=== PATIENT | male | born 1965 | race Caucasian/White ===

== ENCOUNTER 2018-12-29 06:22 | Inpatient (IN) | payer OTHER ==
[2018-12-21 15:36] VITALS: BMI 24.6
[2018-12-29] VITALS (18 sets, daily range): BP systolic 115–134; BP diastolic 70–85; PULSE 58–77; RESP 14–32; Ht 188 cm; Wt 86.0 kg
[~2018-12-29] VITALS: Ht 188 cm; Wt 86.0 kg
--- NOTE | 2018-12-29 05:56 | HPN ---
Date/Time of Note Date/Time of Note DATE: 12/29/18 TIME: 05:55 Interval H&P Admission Note Pt. seen H&P reviewed: No system changes PARAMJIT AMADO MD Dec 29, 2018 05:56
--- NOTE | 2018-12-29 05:59 | OPR ---
Date/Time of Note Date/Time of Note DATE: 12/29/18 TIME: 05:56 Operative Report Procedure Date: Dec 29, 2018 Preoperative Diagnosis Left shoulder primary arthritis Postoperative Diagnosis 1. Left shoulder primary arthritis (glenohumeral) 2. Left shoulder acromioclavicular joint arthritis 3. Left shoulder partial biceps tendon tear 4. Right knee posterior popliteal cyst Operation/Procedure Performed 1. Left open total shoulder replacement 2. Left open distal clavicular excision 3. Left shoulder open biceps tenodesis 4. Right knee aspiration of popliteal cyst with injection of cortisone 5. Left shoulder injection of PRP solution Surgeon see signature line Consulting Property Manager Arie Burrows PA-C Anesthesia Type: general Estimated Blood Loss: 150 - 200 ml's Transfusion none Specimen None Grafts/Implants See op note Complications none Pt Condition Post Procedure: stable Disposition: PACU Procedure Description FRUIT VENDOR SURGEON: Arie Burrows PA-C was asked to be present for this case at my request. Assistance was necessary as a result of the highly technical nature of this operation. When performing an open total shoulder r eplacement, it is critical to have a trained broker assistant who is an expert in handling the extremity and assisting the surgeon in tasks such as suture management and knot-tying techniques as well as implants. This assistance cannot be performed by a relay technician, as it is considered an integral part of the procedure and the broker assistant should be compensated for his time. PROCEDURE IN DETAIL: Following the administration of general anesthesia supplemented with a peripheral nerve block for postoperative pain control, the patient was examined under anesthesia. Examination of the left shoulder revealed severe stiffness and crepitus. The right knee was addressed first. The posterior aspect was prepped where the palpable popliteal cyst evident. Using a 60 cc syringe with a 14-gauge needle, approximately 30 cc of thick clear fluid were aspirated from the knee. The knee was subsequently injected with 80 mg of Kenalog and 2 cc of lidocaine. A sterile dressing was applied. The patient was then placed in the beach chair position. The left forearm was prepped and 60 cc of blood were drawn using a 60 cc syringe coated with anticoagulant. The blood was harvested from the patient and given to the traffic workforce representative who prepared PRP concentrate. Sterile prep and drape was then undertaken. An extended deltopectoral incision was then carried through the interval exposing the conjoined tendon and retracting it medially. The superior aspect of the acromioclavicular joint was then visualized. The AC capsule was incised and the distal clavicle skeletonized for a distance of 10 mm. Severe arthritic changes were noted. The distal clavicle was then excised for a distance of 10 mm decompressing the joint. The joint was irrigated and the AC capsule closed using interrupted #2 sutures. Attention was then directed back to the deltopectoral interval. The subscapularis was incised and mobilized. Severe arthritic changes were noted with very large peripheral osteophytes. Multiple loose bodies were removed from the joint. There was a particularly large one anteriorly in the subcoracoid space. The biceps tendon was identified and it had moderate fraying within the groove. The intra-articular portion was resected and the biceps was tenodesed to the bicipital groove with solid fixation using multiple #2 sutures. This completed the biceps tenodesis. A humeral head osteotomy was then created in the appropriate degree of version and inclination. The humerus was retracted and the glenoid was exposed. Peripheral osteophytes were removed and a complete capsulectomy performed. The central canal of the glenoid was then entered and prepared for a size 44 mm Depuy anchor peg glenoid. A Depuy anchor peg glenoid was then cemented into position with solid fixation. The humerus was then reamed and prepared for a 14 mm humeral component with a 48 x 15 mm humeral head. The actual components were implanted with solid fixation after the canal was irrigated and infiltrated with the PRP solution that was prepared. The subscapularis was reapproximated using #2 sutures that were passed circumferentially around the humerus with a watertight closure of the interval. The arm was taken through full range of motion with no evident instability. The joint was then thoroughly irrigated, the deep tissues were approximated using #1 suture followed by closure of the deep layer using 2-0 Monocryl. The skin was closed using 4-0 Monocryl suture, and a Prenio dressing. An Ultrasling was then applied. The patient was awakened and transported to the recovery room in stable condition. Estimated blood loss for this procedure was 200 cc. Radiographs will be obtained in the recovery room. PARAMJIT AMADO MD Dec 29, 2018 05:59
[2018-12-29] MEDS ORDERED: BUPIVACAINE 0.5% (SDV) 30 ML, morphine SULFATE (PF) 8 MG, EPINEPHrine 0.3 MG, KETOROLAC... IRR SCH ×7 (06:30)
[2018-12-29] MEDS ORDERED: CEFAZOLIN 2 GM/50 ML (PMX) 50 ML IVPB ONE (06:30)
[2018-12-29] MEDS ORDERED: TRANEXAMIC ACID 1GM/100ML(PMX) 100 ML IVPB ONE ×2 (06:30→12:00)
[2018-12-29] MEDS ORDERED: SEVOFLURANE 15 MIN ONE (07:00)
[2018-12-29] MEDS ORDERED: DEXAMETHASONE 1 MG TAB PO ONE (07:00)
[2018-12-29] MEDS ORDERED: GABAPENTIN 300 MG CAP PO ONE (07:00)
[2018-12-29] MEDS ORDERED: BUPIVACAINE 0.5% (SDV) 30 ML INJ ONE (08:34)
[2018-12-29] MEDS ORDERED: MIDAZOLAM 1 MG/ML 2 ML INJ ONE (08:37)
[2018-12-29] MEDS ORDERED: FENTAnyl 50 MCG/ML VIAL ONE (08:39)
[2018-12-29] MEDS ORDERED: PROPOFOL 20 ML ONE (08:39)
[2018-12-29] MEDS ORDERED: ROCURONIUM 50 MG INJ ONE (08:40)
[2018-12-29] MEDS ORDERED: LIDOCAINE 2% (SDV) 5 ML INJ ONE (08:41)
--- NOTE | 2018-12-29 09:14 | PREAC ---
Date/Time of Note Date/Time of Note DATE: 12/29/18 TIME: 09:12 Anesthesia Eval and Record Evaluation Time Pre-Procedure Interview DATE: 12/29/18 TIME: 09:12 Age 53 Sex male NPO: 8 hrs Preoperative diagnosis left shoulder arthritis Planned procedure left total shoulder replacement Past Medical History Past Medical History: Includes Musculoskeletal: Osteoarthritis Surgery & Anesthesia Issues No known issue Meds Anticoagulation: No Beta Naty within 24 hr: No Reason Beta Naty not given: Pt. not on B-Naty No Active Prescriptions or Reported Meds Meds reviewed: Yes Allergies Coded Allergies: No Known Allergies (Verified Allergy, Unknown, 12/29/18) Allergies Reviewed: Yes Labs/Studies Labs Reviewed: Reviewed by anesthesiologist test: N/A Studies: ECG, CXR Pre-procedure Exam Last vitals Vital Signs Date Temp Pulse Resp B/P (MAP) Pulse Ox O2 O2 Flow FiO2 Time Delivery Rate 12/29/18 97.4 63 16 134/80 99 Room Air 07:44 (98) Airway: Adequate mouth opening, Adequate thyromental dist Mallampati: Mallampati II Teeth: Normal Lung: Normal Heart: Normal ASA Physical Status ASA physical status: 2 Emergency: None Planned Anesthetic General/MAC: ETT Nerve block: Brachial plexus (left) Planned Pain Management Single shot nerve block, Parenteral pain med Pre-operative Attestations Prior to commencing anesthesia and surgery, the patient was re-evaluated, there was verification of: *The patient's identity *The results of appropriate recent lab work and preoperative vital signs *The above evaluation not changing prior to induction *Anesthetic plan, risk benefits, alternative and complications discussed with patient/family; questions answered; patient/family understands, accepts and wishes to proceed. EZ STOVALL Dec 29, 2018 09:14
[2018-12-29] MEDS ORDERED: LIDOCAINE 1% (MPF) 30 ML INJ ONE (09:37)
[2018-12-29] MEDS ORDERED: TRIAMCINOLONE ACET 40 MG/ML INJ ONE (09:37)
[2018-12-29] MEDS ORDERED: TRANEXAMIC ACID 1GM/100ML(PMX) 100 ML ONE (09:47)
[2018-12-29] MEDS ORDERED: CEFAZOLIN 1 GM INJ ONE (09:54)
[2018-12-29] MEDS ORDERED: LABETALOL HCL 20MG INJ ONE (09:55)
[2018-12-29] MEDS ORDERED: DEXAMETHASONE 4 MG/ML 5 ML INJ ONE (10:01)
[2018-12-29] MEDS ORDERED: ONDANSETRON 4 MG INJ ONE (10:01)
[2018-12-29] MEDS ORDERED: THROMBIN 5000 UNIT VIAL ONE (10:05)
[2018-12-29] MEDS ORDERED: CA CHLORIDE 10% 10 ML SYRINGE ONE (10:05)
[2018-12-29] MEDS ORDERED: POLYMYXIN/BACITRACIN 1L IRRIG IRR ONE (10:12)
[2018-12-29] MEDS ORDERED: NEOSTIGMINE 3 MG/3 ML SYRINGE ONE (11:39)
[2018-12-29] MEDS ORDERED: GLYCOPYRROLATE 0.4 MG INJ ONE (11:39)
--- NOTE | 2018-12-29 11:42 | DS ---
Date/Time of Note Date/Time of Note DATE: 12/29/18 TIME: 11:42 Discharge Summary Admission/Discharge Info Admit Date/Time Dec 29, 2018 at 06:22 Discharge Date/Time 12/29/2018 Discharge Diagnosis Shoulder arthritis Patient Condition: Good Hospital Course Admitted and underwent uncomplicated procedure discharge in the afternoon after recovery Home Meds No Active Prescriptions or Reported Meds Follow-up Plan 2 weeks in the office Primary Care Provider PARAMJIT AMADO MD Dec 29, 2018 11:42
--- NOTE | 2018-12-29 11:42 | PDOCDIS ---
Discharge Instructions DIAGNOSIS Discharge Diagnosis Shoulder arthritis CONDITION [id number] Patient Condition: Pbddd0g Good HOME CARE INSTRUCTIONS: [id number] Diet Instructions: Exrij0r Regular ACTIVITY: [id number] Activity Restrictions: Vynun1a Rest between Activity Keep Limb Elevated [id number] Bathing Restrictions: Suslo5d Shower FOLLOW UP/APPOINTMENTS Follow-up Plan 2 weeks in the office SCHOOL/WORK RELEASE May return to School/Work with: With Restrictions School/Work Release Comment: 5 pound tabletop use for 6 weeks PARAMJIT AMADO MD Dec 29, 2018 11:42
--- NOTE | 2018-12-29 11:53 | PAC ---
Date/Time of Note Date/Time of Note DATE: 12/29/18 TIME: 11:53 Post-Anesthesia Notes Post-Anesthesia Note Last documented vital signs Vital Signs Date Temp Pulse Resp B/P (MAP) Pulse Ox O2 O2 Flow FiO2 Time Delivery Rate 12/29/18 98.0 76 16 132/78 98 1152 12/29/18 63 16 134/80 99 Room Air 07:44 (98) Activity: WNL Respiratory function: WNL Cardiovascular function: WNL Mental status: Baseline Pain reasonably controlled: Yes Hydration appropriate: Yes Nausea/Vomiting absent: Yes EZ STOVALL Dec 29, 2018 11:53
[2018-12-29] MEDS ORDERED: ZOLPIDEM 5 MG TAB PO PRN (12:00)
[2018-12-29] MEDS ORDERED: FENTAnyl 50 MCG/ML VIAL IV PRN ×3 (12:00)
[2018-12-29] MEDS ORDERED: DEXAMETHASONE 2 MG TAB PO SCH (12:00)
[2018-12-29] MEDS ORDERED: oxyCODONE 5 MG TAB PO PRN ×3 (12:00)
[2018-12-29] MEDS ORDERED: DIPHENHYDRAMINE 50 MG INJ IV PRN ×2 (12:00)
[2018-12-29] MEDS ORDERED: HYDROmorphONE 1 MG/5 ML IV SYRINGE IV PRN ×3 (12:00)
[2018-12-29] MEDS ORDERED: METOCLOPRAMIDE 10 MG INJ IV PRN (12:00)
[2018-12-29] MEDS ORDERED: KETOROLAC 15 MG INJ IV PRN (12:00)
[2018-12-29] MEDS ORDERED: ALBUTEROL 0.083% (NEB) 2.5 MG/3 ML AMP HHN PRN (12:00)
[2018-12-29] MEDS ORDERED: hydrALAzine 20 MG INJ IV PRN (12:00)
[2018-12-29] MEDS ORDERED: HYDROmorphONE 1 MG/ML SYG IV PRN (12:00)
[2018-12-29] MEDS ORDERED: LOPERAMIDE 2 MG CAP PO PRN (12:00)
[2018-12-29] MEDS ORDERED: LABETALOL HCL 20MG INJ IV PRN (12:00)
[2018-12-29] MEDS ORDERED: NACL 0.9% 3 ML SYG IV SCH (12:00)
[2018-12-29] MEDS ORDERED: ACETAMINOPHEN 500 MG TAB PO SCH (12:00)
[2018-12-29] MEDS ORDERED: EPHEDrine 25 MG/5 ML SYG IV PRN (12:00)
[2018-12-29] MEDS ORDERED: MAGNESIUM HYDROXIDE 30ML CUP PO PRN (12:00)
[2018-12-29] MEDS ORDERED: ONDANSETRON 4 MG INJ IV PRN ×2 (12:00)
[2018-12-29] MEDS ORDERED: KETOROLAC 30 MG INJ IV PRN (12:00)
[2018-12-29] MEDS: MEPERIDINE 25 MG INJ IV PRN ×2 (12:07→13:02)
[2018-12-29] MEDS ORDERED: CEFAZOLIN 1 GM/50 ML (PMX) 50 ML IVPB SCH ×3 (13:00→18:00)
[2018-12-29] MEDS ORDERED: GABAPENTIN 300 MG CAP PO SCH (21:00)
[2018-12-29] MEDS ORDERED: SENNA/DOCUSATE NA (8.6MG/50MG) TAB PO SCH (21:00)
== END 2018-12-29 16:55 | disposition home or self-care (01) | DRG 483 ==
LOC: REC 06:22 → EDUNIT# 07:00 → MS1 12:40
PROVIDERS: ADMIT Orthopaedic Surgery; ATTEND Orthopaedic Surgery
PROC: 0LS40ZZ Reposition Left Upper Arm Tendon, Open Approach (ICD-10-PCS; 2018-12-29)
PROC: 0PBB0ZZ Excision of Left Clavicle, Open Approach (ICD-10-PCS; 2018-12-29)
PROC: 0S9C3ZZ Drainage of Right Knee Joint, Percutaneous Approach (ICD-10-PCS; 2018-12-29)
PROC: 0RRK0JZ Replacement of Left Shoulder Joint with Synthetic Substitute, Open Approach (ICD-10-PCS; principal; 2018-12-29 09:30)
DX: M19.012 Primary osteoarthritis, left shoulder (principal); M71.21 Synovial cyst of popliteal space [Baker], right knee; S46.212A Strain of muscle, fascia and tendon of other parts of biceps, left arm, initial encounter; X58.XXXA Exposure to other specified factors, initial encounter
CPT/HCPCS: 73030; 86999; 88304; 88311; 97161; C1713; C1776; J0171; J0690; J1100; J1170; J1885; J2175; J2250; J2274; J2405; J2710; J3010; J3370